=== PATIENT | male | born 1980 | race Caucasian/White ===

== ENCOUNTER 2017-05-09 18:17 | Emergency (ER) | payer BC ==
--- OUTSIDE RECORDS SUMMARY | 2017-05-09 18:24 | XMS REPORT ---
:1980 External Reference #:[id number] Author Organization [facility] Address [address] [place] [address] Phone [phone] Care Team Providers Name Role Phone HCP given Primary Care Physician Unavailable Payers Type Date Identification Numbers Payment Provider Subscriber Commercial Effective: Policy Number: Quincy De Paz 2013 [id number] Ind/Ppo/Hmo/Pos Group Name: Millie [address] [address] PayID: [id number] [place] [address] Problems Date Description Provider Status Onset: 02/13/2014 Carpal tunnel syndrome Reinaldo Price D.O. 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 Cigarette Use 04/19/2016 Denies Cigarette Use ETOH Use Occassional Alcohol Smoking Patient has never smoked Daily Caffeine Consumes on average 1 pot of coffee per day Enjoy Exercising Enjoys exercising Exercise Type/Frequency 04/19/2016 Exercises regularly Sun Exposure Does not use sunscreen Seat Belt/Car Seat always uses seat belt Guns in Home Yes, Not Locked Up Smoke Alarms Yes smoke alarm Currently Active Patient is currently sexually active Contraceptive Methods None # Partners in a Lifetime Partners 1-5 Additional Info Sexual preference is women Allergies, Adverse Reactions, Alerts Date Description Reaction Status Severity Comments 05/31/2011 NKDA active Medications Medication Date Status Form Strength Qnty SIG Indications Ordering Provider Vitamin D 04/18/ Active Tablets 2000Unit takes Unknown 2016 3-6/week Amoxicillin/Cl 05/07/ Hx Tablets 875-125mg 20tabs 1 by J01.00 [place], avulanate 2016 - mouth Reinaldo, Potassium 05/17/ twice a D.O. 2016 day Fluticasone 05/07/ Hx Suspension 50mcg/Act 16unit 2 sprays J01.00 [place], Propionate 2015 - into each Reinaldo, 04/18/ nostril D.O. 2016 twice a day No Active 05/31/ Hx Unknown Medications 2011 - 2015 Immunizations CPT Code Status Date Vaccine Lot # [id number] Given 04/19/2016 Influenza Virus Vaccine, Quadrivalent, Split, [id number] Preservative Free 08083 Given 03/18/2015 Influenza Virus Vaccine, Quadrivalent, Split, [id number] Preservative Free 75681 Given 02/13/2014 Influenza Virus Vaccine, Quadrivalent, Split, [id number] Preservative Free 40624 Given 02/28/2010 Td Immunization 53319 Given Unknown Adacel or Boostrix, TDaP Vital Signs Date Vital Result Comment 04/20/2017 BP Systolic 128 mmHg BP Diastolic 74 mmHg Heart Rate 60 /min reg Respiratory Rate 12 /min not laboured Height 72.75 inches 6'0.75" Weight 206.00 lb BMI (Body Mass Index) 27.4 kg/m2 04/19/2016 BP Systolic 108 mmHg BP Diastolic 70 mmHg Heart Rate 54 /min reg Height 73 inches 6'1" Weight 196.50 lb BMI (Body Mass Index) 25.9 kg/m2 05/07/2015 BP Systolic 122 mmHg BP Diastolic 70 mmHg Body Temperature 97.8 F Weight 208.00 lb 03/18/2015 BP Systolic 117 mmHg BP Diastolic 56 mmHg Heart Rate 60 /min Height 73.25 inches 6'1.25" with boots Weight 209.00 lb with boots BMI (Body Mass Index) 27.4 kg/m2 02/13/2014 BP Systolic 140 mmHg BP Diastolic 76 mmHg Weight 200.00 lb shoes on 12/25/2013 BP Systolic 130 mmHg BP Diastolic 80 mmHg Height 72.5 inches 6'0.50" Weight 202.00 lb BMI (Body Mass Index) 27.0 kg/m2 05/31/2011 BP Systolic 132 mmHg BP Diastolic 64 mmHg BP Systolic Recheck 130 mmHg BP Diastolic Recheck 70 mmHg Heart Rate 63 /min 65 Height 72.25 inches 6'0.25" Weight 206.00 lb BMI (Body Mass Index) 27.7 kg/m2 Results Test Date Test Result H/L Range Note CBC Auto Diff 04/19/2016 White Blood Count 6.3 10^3/uL 3.5-10.8 Red Blood Count 5.59 10^6/uL High 4.0-5.4 Hemoglobin 13.8 g/dL Low 14.0-18.0 Hematocrit 42 % 42-52 Mean Corpuscular Volume 75 fL Low 80-94 Mean Corpuscular Hemoglobin 25 pg Low 27-31 Mean Corpuscular HGB Conc 33 g/dL 31-36 Red Cell Distribution Width 14 % 10.5-15 Platelet Count 218 10^3/uL 150-450 Mean Platelet Volume 8 um3 7.4-10.4 Abs Neutrophils 3.4 10^3/uL 1.5-7.7 Abs Lymphocytes 2.1 10^3/uL 1.0-4.8 Abs Monocytes 0.4 10^3/uL 0-0.8 Abs Eosinophils 0.3 10^3/uL 0-0.6 Abs Basophils 0.1 10^3/uL 0-0.2 Abs Nucleated RBC 0 10^3/uL Granulocyte % 54.6 % 38-83 Lymphocyte % 33.5 % 25-47 Monocyte % 5.9 % 1-9 Eosinophil % 5.2 % 0-6 Basophil % 0.8 % 0-2 Nucleated Red Blood Cells % 0 Laboratory test finding 04/19/2016 Ferritin 80.3 ng/mL 24-336 Iron & Iron Binding Capacity 04/19/2016 Iron 86 g/dL 50-212 Unsaturated Iron Binding 288 g/dL Total Iron Binding Capacity 374 g/dL 250-450 % Iron Saturation 23 % 15-55 Laboratory test finding 04/19/2016 Vitamin D Total 25.2 ng/mL Low 30-50 25(Oh) HIV 1/2 AB Evaluation 03/18/2015 HIV 1 2 Antibody Nonreactive Nonreactive 1 Basic Metabolic Panel 03/18/2015 Sodium 138 mmol/L 133-145 Potassium 3.8 mmol/L 3.5-5.0 Chloride 102 mmol/L 101-111 Co2 Carbon Dioxide 29 mmol/L 22-32 Anion Gap 7 mmol/L 2-11 Glucose 102 mg/dL High 70-100 Blood Urea Nitrogen 20 mg/dL 6-24 Creatinine 0.88 mg/dL 0.67-1.17 BUN/Creatinine Ratio 22.7 High 8-20 Calcium 9.3 mg/dL 8.6-10.3 Egfr Non- 98.0 >60 Egfr 126.0 >60 2 Laboratory test finding 03/18/2015 Vitamin D Total 25(Oh) 16.9 ng/mL Low 30-50 TSH (Thyroid Stim Horm) 1.02 ?IU/mL 0.34-5.60 Vitamin B12 635 pg/mL 180-914 3 CBC Auto Diff 03/18/2015 White Blood Count 6.5 10^3/uL 3.5-10.8 Red Blood Count 5.36 10^6/uL 4.0-5.4 Hemoglobin 13.6 g/dL Low 14.0-18.0 Hematocrit 42 % 42-52 Mean Corpuscular Volume 77 fL Low 80-94 Mean Corpuscular Hemoglobin 25 pg Low 27-31 Mean Corpuscular HGB Conc 33 g/dL 31-36 Red Cell Distribution Width 14 % 10.5-15 Platelet Count 185 10^3/uL 150-450 Mean Platelet Volume 8 um3 7.4-10.4 Abs Neutrophils 3.6 10^3/uL 1.5-7.7 Abs Lymphocytes 2.1 10^3/uL 1.0-4.8 Abs Monocytes 0.4 10^3/uL 0-0.8 Abs Eosinophils 0.3 10^3/uL 0-0.6 Abs Basophils 0.1 10^3/uL 0-0.2 Abs Nucleated RBC 0.01 10^3/uL Granulocyte % 55.6 % 38-83 Lymphocyte % 31.9 % 25-47 Monocyte % 6.8 % 1-9 Eosinophil % 4.8 % 0-6 Basophil % 0.9 % 0-2 Nucleated Red Blood Cells % 0.1 Throat-Beta Strept 01/31/2013 Throat Beta Strep Culture (SEE NOTE) 4 CBC Auto Diff 06/08/2011 White Blood Count 5.7 CUMM 4.8-10.8 Red Cell Count 5.44 CUMM 4.6-6.2 Hemoglobin 14.1 g/dL 14.0-18.0 Hematocrit 42 % 42-52 Mean Corpuscular Volume 76 um3 Low 80-94 Mean Corpuscular Hemoglob 26 pg Low 27-31 Mean Corpuscular HGB Cone 34 g/dL 32-36 Redcell Distribution WDTH 14 % 10.5-15 Platelet Count 189 CUMM 150-450 Mean Platelet Volume 8.9 um3 7.4-10.4 Gran % 44.9 % 38-83 Lymph % 40.7 % 25-47 Mononuclear % 7.4 % 1-9 Eosinophil % 6.2 % High 0-6 Basophil % 0.8 % 0-2 Abs Lymphs 2.3 1.0-4.8 Abs Mononuclear 0.4 0-0.8 Absolute Neutrophil Count 2.6 1.5-7.7 Abs Eosinophils 0.4 0-0.6 Abs Basophils 0 0-0.2 Comp Metabolic Panel 06/08/2011 Sodium 138 mmol/L 135-145 Potassium 4.4 mmol/L 3.5-5.0 Chloride 102 mmol/L 101-111 Co2 (Carbon Dioxide) 29.0 mmol/L 22-32 Anion Gap 7.0 mmol/L 2-11 5 Glucose 102 mg/dL High 70-100 BUN 13 mg/dL 6-24 Creatinine 1.0 mg/dL 0.50-1.40 One Over Creatinine 1.00 BUN/Creatinine Ratio 13.0 8-20 Calcium 9.1 mg/dL 8.1-9.9 Total Protein 6.8 GM/DL 6.2-8.1 Albumin 4.1 GM/DL 3.6-5.4 Globulin 2.7 GM/DL 2-4 Albumin/Globulin Ratio 1.5 1-3 Bilirubin Total 0.8 mg/dL 0.4-1.5 6 Alkaline Phosphatase 50 U/L 39-117 Alt (SGPT) 22 U/L 17-63 Ast (Sgot) 17 U/L 12-42 eGFR Non- 86.6 > 60 eGFR 111.4 > 60 7 Lipid Profile (Trig/Chol/HDL) 06/08/2011 Triglyceride 125 mg/dL 40-200 Cholesterol 217 mg/dL High Less Than 200 8 High Density Lipoprotein 47 mg/dL 40-60 9 Cholesterol/HDL Ratio 4.62 AVERAGE 1-4.97 Low Density Lipoprotein 145 mg/dL High Less Than 100 10 1 It is recognized that currently available assays for the detection of antibodies to HIV-1 and/or HIV-2 may not detect all infected individuals. HIV antibodies may be undetectable in some stages of the infection and in some clinical conditions. The performance of this assay has not been established for populations of infants or children. Assayed by Chemiluminescence Microparticle Immunoassay on the Siemens Advia Centaur CP. Values obtained with different methods or kits cannot be used interchangeably.The diagnostic specificity of the ADVIA Centaur 1/O/2 Enhanced assay in the low risk population was 99.90% (6052/6058) with a 95% confidence interval of 99.78 to 99.96%. 2 Because ethnic data is not always readily available, this report includes an eGFR for both -Americans and non- Americans. The National Kidney Disease Education Program (NKDEP) does not endorse the use of the MDRD equation for patients that are not between the ages of 18 and 70, are , have extremes of body size, muscle mass, or nutritional status, or are non- or non-. According to the National Kidney Foundation, irrespective of diagnosis, the stage of the disease is based on the level of kidney function: Stage Description GFR(mL/min/1.73 m(2)) 1 Kidney damage with normal or decreased GFR 90 2 Kidney damage with mild decrease in GFR 60-89 3 Moderate decrease in GFR 30-59 4 Severe decrease in GFR 15-29 5 Kidney failure <15 (or dialysis) 3 Normal Range 180 to 914 Indeterminate Range 145 to 180 Deficient Range <145 4 RUN DATE: 02/03/13 [facility] LAB LIVE PAGE 1 RUN TIME: [address] [place] [id number] Specimen Inquiry Name: NIRANJAN ROBLES : [address]: Theresa Szymanski MD Acct: [id number] Unit: [id number] AGE: 32 Location: [facility] Re01/31/13 SEX: M Status: DEP ER SPEC: [id number] AGUSTINA: 01/31/13-1757 [facility] DR: Theresa Szymanski MD REQ: [id number] RECD: 02/01/13 STATUS: TESS VÁSQUEZ DR: BEVERLY Holbrook MD _ SOURCE: THROAT SPDESC: ORDERED: Throat Beta Str Procedure Result Verified Site Throat Beta Strep Culture Final 02/03/13- 0803 ML Negative For Group A Beta Streptococcus END OF REPORT * ML=Testing performed at Main Lab DEPARTMENT OF PATHOLOGY, [address] [place] [address] Byron Cruz M.D. Director [facility] Permit #[id number] 5 Anion gap measurement may be of limited value in the presence of any alkalosis, especially in a combined acid base disorder. . 6 A metabolite of Naproxen, O-desmethylnaproxen, has been shown to interfere with the Jendrassik-Ghent method for measuring total bilirubin. Samples from patients who have taken Naproxen have shown spurious elevation in total bilirubin levels. 7 Because ethnic data is not always readily available, this report includes an eGFR for both -Americans and non- Americans. The National Kidney Disease Education Program (NKDEP) does not endorse the use of the MDRD equation for patients that are not between the ages of 18 and 70, are , have extremes of body size, muscle mass, or nutritional status, or are non- or non-. According to the National Kidney Foundation, irrespective of diagnosis, the stage of the disease is based on the level of kidney function: Stage Description GFR(mL/min/1.73 m(2)) 1 Kidney damage with normal or decreased GFR 90 2 Kidney damage with mild decrease in GFR 60-89 3 Moderate decrease in GFR 30-59 4 Severe decrease in GFR 15-29 5 Kidney failure <15 (or dialysis) 8 CHOLESTEROL INTERPRETATION: Desirable: Less than 200 MG/DL Borderline-High Risk: 200-239 MG/DL High-Risk: 240 MG/DL and over 9 HDL INTERPRETATION: Undesirable: High Risk: Less than 40 MG/DL Desirable: Low Risk: Greater than 60 MG/DL 10 LDL INTERPRETATION: Low Risk Optimal Level: LDL Less than 100 MG/DL Near or Above Optimal: LDL 100-129 MG/DL Borderline High Risk: LDL 130-159 MG/DL High Risk: LDL 160-189 MG/DL Very High Risk: LDL Greater than 189 MG/DL Procedures Date CPT Code Description Status 05/07/2015 75978 Remove Impact Cerumen Irrigation/Lavage Unilateral Completed Encounters Type Date Location Provider CPT E/M Dx Office Visit 04/19/2016 9:45a Main Office Sky Holbrook M.D. 84369 Z00.00 Z23 Z41.8 Office Visit 05/07/2015 1:30p Main Office Reinaldo Price D.O. 62208 H61.22 J01.00 Office Visit 03/18/2015 3:30p Main Office Reinaldo Price D.O. 39114 Z00.00 Z23 Z41.8 Office Visit 02/13/2014 2:30p Main Office Reinaldo Price D.O. 33192 354.0 782.9 V04.81 V07.2 Office Visit 12/25/2013 1:45p Main Office Reinaldo Price D.O. 58287 354.0 V70.0 Office Visit 05/31/2011 3:20p Main Office Sonia Artis 79790 V70.0 V77.91 384.20 Plan of Care 04/20/2017 - Sky Holbrook M.D.Z00.00 Encntr for general adult medical exam w /o abnormal [id number] Encounter for screening for lipoid disordersNew Labs :Lipid Profile (Trig/Chol/HDL)Comments:Counseled re immunizations. He agreed to flu vaccine. He periodically gets deep puncture wounds at work, once recenly a deep cut wc his glued shut. Given these injuries around soil, and last tetanus vaccine 8+ yrs ago will give another tetanus vaccine today. VISs provided.E55.9 Vitamin D deficiency, unspecifiedNew Labs:Vitamin D Total 25(Oh) D64.9 Anemia, unspecifiedNew Labs:CBC Auto Diff
[2017-05-09 19:36] VITALS: BP 145/103
[2017-05-09] MEDS ORDERED: Tetracaine 0.5% OPTH.SOL 4 ML* 1 DROP BTL RIGHT EYE ONE (20:06)
[2017-05-09] MEDS ORDERED: Fluorescein Sodium TOPICAL* 1 MG TEST OPHTHALMIC ONE (20:07)
[2017-05-09] MEDS ORDERED: Fluorescein Sod TOPICAL 0.6* 0.6 MG TEST OPHTHALMIC ONE (20:21)
[2017-05-09] MEDS ORDERED: Polymyx/Trimethoprim OPTH* 10 ML BTL RIGHT EYE ONE (20:31)
--- NOTE | 2017-05-20 05:54 | UC ---
Jennifer Iglesias Julia, scribed for Bernabe Aguilar MD on 05/09/17 at 2023 . Eye Complaint HPI - HPI Summary HPI Summary: This patient is a 37 year old M presenting to [facility] with a chief complaint of something in my right eye since this afternoon. Patient reports intermittent annoyance underneath his right eye lid. Patient denies vision changes. The patient rates the pain 3/10 in severity. Symptoms aggravated by blinking and closed eyes. Symptoms alleviated by nothing. - History of Current Complaint Chief Complaint: UCEye Stated Complaint: foreign body in eye Hx Obtained From: Patient Onset/Duration: Lasting Hours Timing: Intermittent Episode Lasting - irritation Pain Intensity: 3 Pain Scale Used: 0-10 Numeric Location of Injury: Eye Lid (upper) - R Character: Foreign Body Sensation Aggravating Factor(s): Blinking Alleviating Factor(s): Nothing - Allergies/Home Medications Allergies/Adverse Reactions: Allergies Allergy/AdvReac Type Severity Reaction Status Date / Time ENVIRONMENT/SEASONAL HAYFEVER Allergy ITCHY Uncoded 05/09/17 19:36 WATERY EYES, PMH/Surg Hx/FS Hx/Imm Hx Previously Healthy: Yes - Surgical History Surgical History: Yes Surgery Procedure, Year, and Place: TUBES IN EAR A CHILD. EAR DRUM REPAIR, [place]. 03[place] [facility] [place] - Family History Known Family History: Positive: Diabetes - Social History Occupation: Employed Full-time Alcohol Use: Occasionally Alcohol Amount: 4-6 PER WEEK Substance Use Type: None Smoking Status (MU): Never Smoked Tobacco Review of Systems Constitutional: Negative Eyes: Negative - vision changes, Other - foriegn body sensation All Other Systems Reviewed And Are Negative: Yes Physical Exam Triage Information Reviewed: Yes Vital Signs: Initial Vital Signs Temp 98.3 F 05/09/17 19:32 Pulse 61 05/09/17 19:32 Resp 16 05/09/17 19:32 BP 145/103 05/09/17 19:32 Pulse Ox 99 05/09/17 19:32 Vital Signs Reviewed: Yes - Additional Comments Appearance: Well-appearing, Well-nourished Skin: Warm HENT: Minimal conjunctival conjection on R, extraocular movements intake, no pain with extra ocular movement, foreign body sensation R upper eye lid, no sidel sign moist mucous membranes Psychiatric: Normal General: No acute distress Procedures - Procedure Summary Procedure Summary: Fluorescence exam: mild conjunctiva uptake on R sclera, no foreign bodies visualized. Pt has relief with. Pt has relief with tetrazyine Eye Complaint Course/Dx - Differential Dx/Diagnosis Provider Diagnoses: eye pain Discharge - Discharge Plan Condition: Improved Disposition: HOME Prescriptions: Polymyx/Trimethoprim OPTH* [Polytrim OPHTH*] 1 drop RIGHT EYE Q3H #1 btl Patient Education Materials: Corneal Abrasion (DC) Referrals: Sky Santamaria [Medical Doctor] - Sky Holbrook MD [Primary Care Provider] - Yovani Cook MD [Medical Doctor] - Maty Neves MD [Medical Doctor] - Additional Instructions: PLEASE TAKE MEDICATIONS DIRECTED PLEASE SEEK MEDICAL ATTENTION IMMEDIATELY IF YOU HAVE ANY WORSENING OR CONCERNING SYMPTOMS PLEASE MAKE AN APPOINTMENT TO BE SEEN BY AN RADAR REPAIRER WITHIN 3-4 DAYS IF NO IMPROVEMENT PLEASE MAKE AN APPOINTMENT TO BE SEEN BY YOUR PRIMARY CARE DOCTOR WITHIN 1 WEEK The documentation as recorded by the Jennifer gruber Julia accurately reflects the service I personally performed and the decisions made by me, Bernabe Aguilar MD.
== END 2017-05-09 21:21 | disposition home or self-care (01) ==
LOC: UCEAST 18:17
DX: H57.11 Ocular pain, right eye (principal)
CPT/HCPCS: 99212; A9270-GY; G0463